=== PATIENT | female | born 2000 | race Caucasian/White ===

== ENCOUNTER 2024-05-27 06:30 | Inpatient (IN) ==
[2024-05-27] MEDS ORDERED: ZOFRAN INJ 4 MG VIAL IVP PRN ×2 (06:43→20:28)
[2024-05-27] MEDS ORDERED: PITOCIN ONE ×2 (06:54→19:14)
[2024-05-27] MEDS ORDERED: BETADINE SOLN ONE (06:55)
[2024-05-27] MEDS: LR 1,000 ML IV 1,000 ML IV SCH (07:00)
[2024-05-27 07:26] LABS: BASOPHILS % (AUTO) 0.3 % (0.2-1.0); EOSINOPHILS % (AUTO) 0.3 % (0.9-2.9); HEMATOCRIT 36.6 % (36.0-47.0); HEMOGLOBIN 12.3 g/dL (12.0-16.0); LYMPHOCYTES # (AUTO) 2.6 X10^3/uL (1.3-2.9); LYMPHOCYTES % (AUTO) 20.9 % (21.0-51.0); MEAN CORPUSCULAR HEMOGLOBIN 28.9 pg (27.0-34.0); MEAN CORPUSCULAR HGB CONC 33.7 g/dL (33.0-35.0); MEAN CORPUSCULAR VOLUME 85.7 fL (80.0-100.0); MONOCYTES % (AUTO) 8.4 % (0.0-13.0); NEUTROPHILS # (AUTO) 8.7 x10^3/uL (2.2-4.8); NEUTROPHILS % (AUTO) 70.1 % (42.0-75.0); PLATELET COUNT 224 X10^3/uL (150.0-450.0); RED BLOOD COUNT 4.27 X10^6/uL (3.5-5.4); RED CELL DISTRIBUTION WIDTH 14.1 % (11.6-16.5); WHITE BLOOD COUNT 12.4 X10^3/uL (3.6-10.0)
[2024-05-27 07:29] LABS: BLOOD UREA NITROGEN 10 mg/dL (7-18); CALCIUM 9.1 mg/dL (8.5-10.1); CARBON DIOXIDE 22.2 mmol/L (21-32); CHLORIDE 102 mmol/L (98-107); CREATININE 0.58 mg/dL (0.55-1.02); GLUCOSE 89 mg/dL (65-99); SODIUM 135 mmol/L (136-145); eGFR NON BLACK RACES > 60 (>60)
[2024-05-27] MEDS: OXYTOCIN 20 UNIT/1,000 ML-NS 20 UNIT/1,000 ML PLAST..BAG IV PRN (07:45)
[2024-05-27 07:46] LABS: BILIRUBIN,URINE NEGATIVE (NEGATIVE); BLOOD/HEMOGLOBIN,URINE NEGATIVE (NEGATIVE); GLUCOSE, URINE NEGATIVE (NEGATIVE); KETONES,URINE NEGATIVE (NEGATIVE); LEUKOCYTE ESTERASE ,URINE 3+ (NEGATIVE); NITRITES,URINE NEGATIVE (NEGATIVE); PROTEIN,URINE 1+ (NEGATIVE); UROBILINOGEN,URINE NORMAL (NORMAL)
[2024-05-27 08:02] LABS: APPEARANCE,URINE CLEAR (CLEAR); COLOR,URINE YELLOW (YELLOW)
[2024-05-27 08:04] LABS: BACTERIA,URINE TRACE /HPF (NEGATIVE); RBC,URINE NONE SEEN /HPF (0-3); SQUAMOUS EPITHELIAL CELL,UR FEW /HPF (NEGATIVE)
[2024-05-27] MEDS: LR 1,000 ML IV 1,000 ML IV ONE ×5 (08:14→16:28)
[2024-05-27] MEDS: XYLOCAINE 1 % (PLAIN) ONE (09:23)
[2024-05-27] MEDS: FENTANYL VIAL INJ 100 mcg ONE (09:35)
[2024-05-27] MEDS: NAROPIN EPIDURAL 0.2% 100 ML ONE (09:35)
[2024-05-27] MEDS: NUBAIN INJ 20 MG AMP IVP PRN (11:10)
[2024-05-27] MEDS: NUBAIN INJ 10 MG AMP ONE ×4 (11:14→18:08)
[2024-05-27] MEDS ORDERED: REGLAN INJ 10 MG VIAL ONE (18:54)
[2024-05-27] MEDS ORDERED: ZOFRAN INJ 4 MG VIAL ONE (18:54)
[2024-05-27] MEDS ORDERED: PEPCID 20 MG VIAL ONE (18:54)
[2024-05-27] MEDS ORDERED: DIPRIVAN VIAL 20 ML ONE (18:57)
[2024-05-27] MEDS: PEPCID 20 MG VIAL IVP PRN (18:59)
[2024-05-27] MEDS: ZOFRAN INJ 4 MG VIAL IVP PRN (19:00)
[2024-05-27] MEDS: LR 1,000 ML IV 2,000 ML IV PRN (19:00)
[2024-05-27] MEDS: REGLAN INJ 10 MG VIAL IVP PRN (19:00)
[2024-05-27] MEDS: NS 100 ML IV 100 ML ONE (19:11)
[2024-05-27] MEDS: ANCEF VIAL 1 GRAM ONE (19:11)
[2024-05-27] MEDS ORDERED: XYLOCAINE 2 % (PLAIN) ONE (19:13)
[2024-05-27] MEDS ORDERED: PRECEDEX INJ VIAL ONE (19:13)
[2024-05-27] MEDS: ANCEF VIAL 1 GRAM IV PRN (19:15)
[2024-05-27] MEDS ORDERED: EPHEDRINE SULFATE INJ ONE (19:33)
[2024-05-27] MEDS ORDERED: LR 1,000 ML IV 1,000 ML IV ONE (19:36)
[2024-05-27] MEDS: TORADOL 30 MG VIAL IVP PRN (20:01)
[2024-05-27] MEDS ORDERED: TORADOL 30 MG VIAL ONE (20:01)
[2024-05-27] MEDS ORDERED: OFIRMEV IV 1000 MG VIAL 1,000 MG/100 ML VIAL IV ONE (20:02)
[2024-05-27] MEDS: DIPRIVAN VIAL 50 ML IVP PRN (20:04)
[2024-05-27] MEDS: OFIRMEV IV 1000 MG VIAL 1,000 MG/100 ML VIAL IV PRN (20:08)
[2024-05-27] MEDS: EPHEDRINE SULFATE INJ IVP PRN (20:10)
[2024-05-27] MEDS ORDERED: PITOCIN IVP PRN (20:19)
[2024-05-27] MEDS ORDERED: BARHEMSYS INJ IVP PRN (20:28)
[2024-05-27] MEDS ORDERED: DILAUDID INJ IVP PRN (20:28)
[2024-05-27] MEDS ORDERED: REGLAN INJ 10 MG VIAL IVP PRN (20:28)
[2024-05-27] MEDS ORDERED: BENADRYL INJ 50 MG VIAL IVP PRN (20:28)
--- NOTE | 2024-05-27 20:37 | OR.IMMED ---
IMMEDIATE POST-OP NOTE Immediate Post-Op Note Pre-Op Diagnosis: Arrest of dilatation and descent Post-Op Diagnosis: same Procedure: Primary low transverse section via Pfannenstiel Findings: Live with reassuring apgars Specimens Removed: Placenta Estimated Blood Loss: 250 Drains: Catheter Complications: None Discharge Progress Notes: Transferred to PACU in stable condition
--- NOTE | 2024-05-27 20:40 | OB.OPNOTE ---
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 Operative technique: The patient was taken to the operating room with IV running after proper informed consent was obtained. She was placed on the operating room table where spinal anesthesia was administered. She was then repositioned in the dorsal supine position. A timeout was obtained. The skin was tested for adequacy of anesthesia. A Pfannenstiel incision was marked in the midline approximately 2 cm above the symphysis pubis. This incision was made sharply with the scalpel and extended through the subcutaneous tissue to the fascia with the Bovie in cautery mode. The fascia was scored in the midline and this extended with the Bovie in cautery mode and also sharp and blunt dissection. The superior aspect of the incision was then tented up with 2 Adrian clamps. The fascia was dissected off the rectus muscles below. In a similar fashion the inferior aspect of the incision was tented up and dissected off the rectus muscles below. The peritoneum was then entered with blunt dissection and a bilateral stretching maneuver was used to expose the vesicouterine peritoneum the incision of the peritoneum was extended with the Bovie and cautery mode in a cephalocaudal direction. The bladder blade was then placed the the vesicouterine peritoneum was incised with Metzenbaum scissors in an upward elliptical fashion. The bladder blade was replaced inside this incision and the scalpel was used to make a transverse incision in the lower uterine segment. This incision was extended with bilateral traction. The head was then atraumatically delivered through the myometrial incision, cord was doubly clamped and cut oral cavity was suctioned with a bulb suction. The was handed off to waiting housing quality standard inspector staff. The placenta was then delivered by manual extraction, the endometrial cavity curetted with moist laparotomy sponges. The uterus was then wrapped with a laparotomy sponge which was moistened and attention was turned to closing the lower uterine segment incision this incision was closed in a 2 layer fashion first with a running unlocked suture of 0 Vicryl second with an imbricating suture over the original closure. The uterus was then tilted anteriorly and the cul-de-sac was cleared of all clot and debris material and irrigated and uterus replaced the lower uterine segment incision was inspected off of tilt. It was found to be adequately hemostatic. The gutters were cleared of all clot and debris material. The parietal peritoneum was then reapproximated with 2-0 Vicryl in a running fashion. The muscle layers were irrigated and blotted dry and small bleeders coagulated with the Bovie. The fascia was then reapproximated with 0 Vicryl in a running fashion. The subcutaneous layer was irrigated and blotted dry and small bleeders coagulated with the Bovie the subcutaneous tissue was then reapproximated with 3-0 Vicryl in an interrupted fashion. The skin was closed with jaret. A sterile dressing was applied, and the patient seemed to tolerate this procedure well. She was transported to recovery room in stable condition.
[2024-05-27] MEDS: OXYTOCIN 20 UNIT/1,000 ML-NS 20 UNIT/1,000 ML PLAST..BAG IV SCH (22:39)
[2024-05-28] MEDS: OFIRMEV IV 1000 MG VIAL 1,000 MG/100 ML VIAL IV PRN (00:54)
[2024-05-28] MEDS: ROXICODONE TAB 5 MG PO PRN (02:25)
[2024-05-28] MEDS: MOTRIN TAB 800 MG PO PRN (05:52)
[2024-05-28] MEDS: PERCOCET TAB 5/325 MG PO PRN (08:11)
--- NOTE | 2024-05-28 08:34 | NOTE.PROBC ---
Progress Note OB-C/S Date Date of Exam: 05/28/24 Subjective Data Subjective: No complaints, decreased lochia. Tolerating diet. Ambulating. Quinones Has been removed and patient is up to the bathroom. Pain under control. Patient states that the IV Tylenol and Roxicodone did not help her. Objective Data 05/27/24 07:05 05/27/24 07:05 Objective Data: CV= RRR no MRG Lungs=CTA Bilaterally Abd=(+) BS, soft, ND, appropriately tender near incision. Fundus firm/NT/ at umbilicus. Ext= No edema, NT, No Cords. Sequential Compression Devices Bilaterally. Assessment Assessment: Postop day #1 status post primary section due to arrest of dilatation and descent. Patient appears to be doing well. Plan: Ambulate. Advance diet as tolerated.
--- NOTE | 2024-05-28 08:49 | DR.H&PGYN ---
H&P OBSTERICS/GYNECOLOGY Date Date of Exam: 05/27/24 Chief Complaint (1) Arrest of dilation, delivered, current hospitalization: Chief Complaint: 23-year-old, 3, Para 0, Currently at 40 weeks and 2 days of gestation for elective induction at full-term with favorable cervix. Allergies Allergies Allergy/AdvReac Type Severity Reaction Status Date / Time No Known Allergies Allergy Verified 05/21/24 21:40 History of Present Illness History of Present Illness: Patient has a recent history of feeling her heart racing and was evaluated by cardiology, and now states that her symptoms have resolved. She was placed on metoprolol. The plan to proceed with elective induction was discussed. The patient was in agreement with proceeding with el ective induction. Review of Systems Constitutional: No Symptoms Reported Cardiovascular: No Symptoms Reported Neurological: No Symptoms Reported Obsterical History : 3 Para: 0 : 2 Past Medical History Medical History: Other (Polycystic ovarian syndrome and obesity) Social History Does patient currently use any type of tobacco product: Yes Type of Tobacco Use: Vape Does any household member use tobacco: No Alcohol Use: None Drug Use: None Medications Active Medications Lactated Ringer's (Lr 1,000 Ml Iv) 1,000 mls @ 125 mls/hr IV Q8H PRINCE Last Admin: 05/28/24 03:11 Dose: Not Given Oxytocin/Sodium Chloride (Oxytocin 20 Unit/1,000 Ml-Ns) 20 unit in 1,000 mls @ 125 mls/hr IV Q8H PRINCE; Protocol Last Admin: 05/27/24 22:39 Dose: Not Given Acetaminophen (Ofirmev Iv 1000 Mg Vial) 1,000 mg in 100 mls @ 400 mls/hr IV Q6H PRN PRN Reason: FEVER OR MILD PAIN Last Admin: 05/28/24 00:54 Dose: 400 mls/hr Ibuprofen (Ibuprofen 800 Mg Tab) 800 mg PO Q8H PRN PRN Reason: MILD TO MODERATE PAIN Last Admin: 05/28/24 05:52 Dose: 800 mg Ondansetron HCl (Ondansetron Hcl 4 Mg/2 Ml Inj) 4 mg IVP Q8H PRN PRN Reason: NAUSEA/VOMITING Oxycodone/Acetaminophen (Oxycodone/Acet 5 Mg/325 Mg Tab) 1 ea PO Q4H PRN PRN Reason: SEVERE PAIN Last Admin: 05/28/24 08:11 Dose: 1 ea Physical Exam Temperature: 98.2 F Blood Pressure: 114/61 Respiratory Rate: 19 Pulse Rate: 82 O2 Sat by Pulse Oximetry: 96 Oriented: Normal Respiratory: Normal Cardiovascular: Normal : Other (Cervix was 3 cm, 25% effaced, vertex, and -2 station. heart tones were within normal limits category 1. ) Plan Plan: Patient was admitted for elective induction at full-term. She was started on Pitocin, and consented for an epidural. Expectant management. Monitor progress and heart tones. Review H&P Reviewed: Yes Patient was examined?: Yes
[2024-05-29 06:13] LABS: HEMATOCRIT 27.9 % (36.0-47.0); HEMOGLOBIN 9.4 g/dL (12.0-16.0)
[2024-05-29 08:00] VITALS: BP 103/59; PULSE 100; TEMP 98.9; O2SAT 98
--- NOTE | 2024-05-29 08:08 | W.DIS.FURT ---
Summary of Discharge Discharge Summary of Date Date of Exam: 05/29/24 Admission Date Date of Admission: 05/27/24 Admission Diagnosis Hospital Course: Patient is a 23-year-old 3 para 1, currently postoperative day #2 status post section. Patient was admitted for elective induction at full-term with a favorable cervix. She subsequently had arrest of dilatation and descent and was delivered by section. Her postoperative course has been essentially uncomplicated. Vital Signs: Vital Signs (72 hours) 05/28/24 08:49 05/27/24 06:52 05/27/24 06:51 Temperature 98.2 F Pulse Rate 82 96 H 91 H Pulse Rate [Left Brachial] Respiratory Rate 19 Blood Pressure 114/61 121/76 Blood Pressure [Left Arm] O2 Sat by Pulse Oximetry 96 94 L 94 L Oxygen Delivery Method 05/27/24 06:57 05/27/24 07:02 05/27/24 07:08 Temperature Pulse Rate 94 H 77 78 Pulse Rate [Left Brachial] Respiratory Rate Blood Pressure Blood Pressure [Left Arm] O2 Sat by Pulse Oximetry 96 96 88 L Oxygen Delivery Method 05/27/24 07:07 05/27/24 07:08 05/27/24 07:12 Temperature Pulse Rate 87 91 H 95 H Pulse Rate [Left Brachial] Respiratory Rate Blood Pressure 116/78 Blood Pressure [Left Arm] O2 Sat by Pulse Oximetry 96 95 Oxygen Delivery Method 05/27/24 07:17 05/27/24 07:22 05/27/24 07:23 Temperature Pulse Rate 86 81 83 Pulse Rate [Left Brachial] Respiratory Rate Blood Pressure 108/77 Blood Pressure [Left Arm] O2 Sat by Pulse Oximetry 97 98 Oxygen Delivery Method 05/27/24 07:27 05/27/24 07:32 05/27/24 07:37 Temperature Pulse Rate 65 79 84 Pulse Rate [Left Brachial] Respiratory Rate Blood Pressure 117/74 Blood Pressure [Left Arm] O2 Sat by Pulse Oximetry 97 97 89 L Oxygen Delivery Method 05/27/24 07:42 05/27/24 07:47 05/27/24 07:52 Temperature Pulse Rate 70 77 67 Pulse Rate [Left Brachial] Respiratory Rate Blood Pressure 118/76 Blood Pressure [Left Arm] O2 Sat by Pulse Oximetry 97 97 95 Oxygen Delivery Method 05/27/24 07:57 05/27/24 08:02 05/27/24 08:07 Temperature Pulse Rate 70 72 69 Pulse Rate [Left Brachial] Respiratory Rate Blood Pressure 126/79 Blood Pressure [Left Arm] O2 Sat by Pulse Oximetry 97 97 92 L Oxygen Delivery Method 05/27/24 08:12 05/27/24 08:17 05/27/24 08:22 Temperature Pulse Rate 67 67 68 Pulse Rate [Left Brachial] Respiratory Rate Blood Pressure Blood Pressure [Left Arm] O2 Sat by Pulse Oximetry 97 98 97 Oxygen Delivery Method 05/27/24 08:22 05/27/24 08:27 05/27/24 08:32 Temperature Pulse Rate 70 80 77 Pulse Rate [Left Brachial] Respiratory Rate Blood Pressure 133/79 Blood Pressure [Left Arm] O2 Sat by Pulse Oximetry 98 99 Oxygen Delivery Method 05/27/24 07:00 05/27/24 08:37 05/27/24 08:42 Temperature 97.9 F Pulse Rate 56 L 82 Pulse Rate [Left Brachial] Respiratory Rate 19 Blood Pressure 141/93 Blood Pressure [Left Arm] O2 Sat by Pulse Oximetry 96 100 Oxygen Delivery Method 05/27/24 08:47 05/27/24 08:52 05/27/24 08:52 Temperature Pulse Rate 72 90 99 H Pulse Rate [Left Brachial] Respiratory Rate Blood Pressure 141/93 Blood Pressure [Left Arm] O2 Sat by Pulse Oximetry 98 99 Oxygen Delivery Method 05/27/24 08:57 05/27/24 09:02 05/27/24 09:07 Temperature Pulse Rate 82 90 98 H Pulse Rate [Left Brachial] Respiratory Rate Blood Pressure 148/96 Blood Pressure [Left Arm] O2 Sat by Pulse Oximetry 100 99 97 Oxygen Delivery Method 05/27/24 09:12 05/27/24 09:17 05/27/24 09:20 Temperature Pulse Rate 84 83 88 Pulse Rate [Left Brachial] Respiratory Rate Blood Pressure 131/73 128/80 Blood Pressure [Left Arm] O2 Sat by Pulse Oximetry 97 97 Oxygen Delivery Method 05/27/24 09:22 05/27/24 09:23 05/27/24 09:26 Temperature Pulse Rate 94 H 96 H 106 H Pulse Rate [Left Brachial] Respiratory Rate Blood Pressure 132/87 131/86 Blood Pressure [Left Arm] O2 Sat by Pulse Oximetry 99 Oxygen Delivery Method 05/27/24 09:27 05/27/24 09:29 05/27/24 09:32 Temperature Pulse Rate 104 H 81 87 Pulse Rate [Left Brachial] Respiratory Rate Blood Pressure 136/78 Blood Pressure [Left Arm] O2 Sat by Pulse Oximetry 98 99 Oxygen Delivery Method 05/27/24 09:32 05/27/24 09:35 05/27/24 09:37 Temperature Pulse Rate 90 67 70 Pulse Rate [Left Brachial] Respiratory Rate Blood Pressure 107/72 110/70 Blood Pressure [Left Arm] O2 Sat by Pulse Oximetry 98 Oxygen Delivery Method 05/27/24 09:38 05/27/24 09:41 05/27/24 09:42 Temperature Pulse Rate 62 72 70 Pulse Rate [Left Brachial] Respiratory Rate Blood Pressure 108/68 110/69 Blood Pressure [Left Arm] O2 Sat by Pulse Oximetry 98 Oxygen Delivery Method 05/27/24 09:44 05/27/24 09:47 05/27/24 09:50 Temperature Pulse Rate 85 82 65 Pulse Rate [Left Brachial] Respiratory Rate Blood Pressure 123/71 130/60 136/80 Blood Pressure [Left Arm] O2 Sat by Pulse Oximetry 99 Oxygen Delivery Method 05/27/24 09:52 05/27/24 09:53 05/27/24 09:56 Temperature Pulse Rate 84 72 78 Pulse Rate [Left Brachial] Respiratory Rate Blood Pressure 130/77 125/73 Blood Pressure [Left Arm] O2 Sat by Pulse Oximetry 99 Oxygen Delivery Method 05/27/24 09:57 05/27/24 09:59 05/27/24 10:02 Temperature Pulse Rate 81 64 68 Pulse Rate [Left Brachial] Respiratory Rate Blood Pressure 123/74 Blood Pressure [Left Arm] O2 Sat by Pulse Oximetry 99 99 Oxygen Delivery Method 05/27/24 10:02 05/27/24 10:07 05/27/24 10:09 Temperature Pulse Rate 73 70 81 Pulse Rate [Left Brachial] Respiratory Rate Blood Pressure 128/69 147/75 Blood Pressure [Left Arm] O2 Sat by Pulse Oximetry 99 Oxygen Delivery Method 05/27/24 10:08 05/27/24 09:00 05/27/24 10:11 Temperature 98.0 F Pulse Rate 86 73 Pulse Rate [Left Brachial] Respiratory Rate 20 Blood Pressure 113/64 Blood Pressure [Left Arm] O2 Sat by Pulse Oximetry 87 L Oxygen Delivery Method 05/27/24 10:12 05/27/24 10:14 05/27/24 10:17 Temperature Pulse Rate 69 75 91 H Pulse Rate [Left Brachial] Respiratory Rate Blood Pressure 117/56 118/64 Blood Pressure [Left Arm] O2 Sat by Pulse Oximetry 97 90 L Oxygen Delivery Method 05/27/24 10:20 05/27/24 10:22 05/27/24 10:23 Temperature Pulse Rate 94 H 90 92 H Pulse Rate [Left Brachial] Respiratory Rate Blood Pressure 120/72 124/71 Blood Pressure [Left Arm] O2 Sat by Pulse Oximetry 98 Oxygen Delivery Method 05/27/24 10:26 05/27/24 10:27 05/27/24 10:29 Temperature Pulse Rate 88 88 90 Pulse Rate [Left Brachial] Respiratory Rate Blood Pressure 117/64 112/73 Blood Pressure [Left Arm] O2 Sat by Pulse Oximetry 99 Oxygen Delivery Method 05/27/24 10:31 05/27/24 10:32 05/27/24 10:32 Temperature Pulse Rate 90 75 75 Pulse Rate [Left Brachial] Respiratory Rate Blood Pressure 120/74 Blood Pressure [Left Arm] O2 Sat by Pulse Oximetry 94 L 98 Oxygen Delivery Method 05/27/24 10:35 05/27/24 10:37 05/27/24 10:38 Temperature Pulse Rate 81 76 64 Pulse Rate [Left Brachial] Respiratory Rate Blood Pressure 119/61 120/65 Blood Pressure [Left Arm] O2 Sat by Pulse Oximetry 98 Oxygen Delivery Method 05/27/24 10:41 05/27/24 10:42 05/27/24 10:41 Temperature Pulse Rate 85 72 74 Pulse Rate [Left Brachial] Respiratory Rate Blood Pressure 121/67 Blood Pressure [Left Arm] O2 Sat by Pulse Oximetry 97 94 L Oxygen Delivery Method 05/27/24 10:45 05/27/24 10:47 05/27/24 10:50 Temperature Pulse Rate 75 72 76 Pulse Rate [Left Brachial] Respiratory Rate Blood Pressure 120/57 131/70 120/62 Blood Pressure [Left Arm] O2 Sat by Pulse Oximetry 98 Oxygen Delivery Method 05/27/24 10:52 05/27/24 10:53 05/27/24 10:56 Temperature Pulse Rate 71 76 80 Pulse Rate [Left Brachial] Respiratory Rate Blood Pressure 117/72 127/83 Blood Pressure [Left Arm] O2 Sat by Pulse Oximetry 98 Oxygen Delivery Method 05/27/24 10:57 05/27/24 10:59 05/27/24 11:02 Temperature Pulse Rate 80 83 65 Pulse Rate [Left Brachial] Respiratory Rate Blood Pressure 122/77 Blood Pressure [Left Arm] O2 Sat by Pulse Oximetry 98 98 Oxygen Delivery Method 05/27/24 11:02 05/27/24 11:06 05/27/24 11:07 Temperature Pulse Rate 64 82 79 Pulse Rate [Left Brachial] Respiratory Rate Blood Pressure 127/60 150/75 Blood Pressure [Left Arm] O2 Sat by Pulse Oximetry 96 Oxygen Delivery Method 05/27/24 11:08 05/27/24 11:12 05/27/24 11:12 Temperature Pulse Rate 60 77 85 Pulse Rate [Left Brachial] Respiratory Rate Blood Pressure 130/76 Blood Pressure [Left Arm] O2 Sat by Pulse Oximetry 95 93 L Oxygen Delivery Method 05/27/24 11:14 05/27/24 11:17 05/27/24 11:20 Temperature Pulse Rate 86 85 80 Pulse Rate [Left Brachial] Respiratory Rate Blood Pressure 117/62 116/65 124/61 Blood Pressure [Left Arm] O2 Sat by Pulse Oximetry 99 Oxygen Delivery Method 05/27/24 11:22 05/27/24 11:25 05/27/24 11:27 Temperature Pulse Rate 80 77 68 Pulse Rate [Left Brachial] Respiratory Rate Blood Pressure 114/61 Blood Pressure [Left Arm] O2 Sat by Pulse Oximetry 98 98 Oxygen Delivery Method 05/27/24 11:32 05/27/24 11:37 05/27/24 11:38 Temperature Pulse Rate 82 80 75 Pulse Rate [Left Brachial] Respiratory Rate Blood Pressure 118/71 Blood Pressure [Left Arm] O2 Sat by Pulse Oximetry 98 97 Oxygen Delivery Method 05/27/24 11:42 05/27/24 11:47 05/27/24 11:52 Temperature Pulse Rate 74 69 109 H Pulse Rate [Left Brachial] Respiratory Rate Blood Pressure Blood Pressure [Left Arm] O2 Sat by Pulse Oximetry 97 97 98 Oxygen Delivery Method 05/27/24 11:54 05/27/24 11:57 05/27/24 12:00 Temperature Pulse Rate 81 81 73 Pulse Rate [Left Brachial] Respiratory Rate Blood Pressure Blood Pressure [Left Arm] O2 Sat by Pulse Oximetry 93 L 98 93 L Oxygen Delivery Method 05/27/24 12:07 05/27/24 12:07 05/27/24 12:12 Temperature Pulse Rate 106 H 103 H 96 H Pulse Rate [Left Brachial] Respiratory Rate Blood Pressure 125/95 Blood Pressure [Left Arm] O2 Sat by Pulse Oximetry 97 93 L 96 Oxygen Delivery Method 05/27/24 12:13 05/27/24 12:14 05/27/24 12:17 Temperature Pulse Rate 83 86 77 Pulse Rate [Left Brachial] Respiratory Rate Blood Pressure 140/61 Blood Pressure [Left Arm] O2 Sat by Pulse Oximetry 93 L 98 Oxygen Delivery Method 05/27/24 12:19 05/27/24 12:23 05/27/24 12:24 Temperature Pulse Rate 78 103 H 94 H Pulse Rate [Left Brachial] Respiratory Rate Blood Pressure 118/78 Blood Pressure [Left Arm] O2 Sat by Pulse Oximetry 92 L 98 93 L Oxygen Delivery Method 05/27/24 12:28 05/27/24 12:33 05/27/24 12:38 Temperature Pulse Rate 82 78 92 H Pulse Rate [Left Brachial] Respiratory Rate Blood Pressure Blood Pressure [Left Arm] O2 Sat by Pulse Oximetry 97 96 95 Oxygen Delivery Method 05/27/24 12:40 05/27/24 12:43 05/27/24 12:48 Temperature Pulse Rate 85 79 80 Pulse Rate [Left Brachial] Respiratory Rate Blood Pressure 117/71 Blood Pressure [Left Arm] O2 Sat by Pulse Oximetry 93 L 96 97 Oxygen Delivery Method 05/27/24 12:50 05/27/24 12:53 05/27/24 12:58 Temperature Pulse Rate 83 86 84 Pulse Rate [Left Brachial] Respiratory Rate Blood Pressure 110/66 Blood Pressure [Left Arm] O2 Sat by Pulse Oximetry 93 L 95 96 Oxygen Delivery Method 05/27/24 13:03 05/27/24 13:05 05/27/24 13:08 Temperature Pulse Rate 79 74 77 Pulse Rate [Left Brachial] Respiratory Rate Blood Pressure Blood Pressure [Left Arm] O2 Sat by Pulse Oximetry 98 94 L 98 Oxygen Delivery Method 05/27/24 13:09 05/27/24 13:11 05/27/24 13:13 Temperature Pulse Rate 85 83 91 H Pulse Rate [Left Brachial] Respiratory Rate Blood Pressure 112/69 Blood Pressure [Left Arm] O2 Sat by Pulse Oximetry 94 L 94 L Oxygen Delivery Method 05/27/24 13:18 05/27/24 13:21 05/27/24 13:23 Temperature Pulse Rate 86 75 80 Pulse Rate [Left Brachial] Respiratory Rate Blood Pressure Blood Pressure [Left Arm] O2 Sat by Pulse Oximetry 96 94 L 96 Oxygen Delivery Method 05/27/24 13:23 05/27/24 13:27 05/27/24 13:00 Temperature 97.8 F Pulse Rate 76 78 Pulse Rate [Left Brachial] Respiratory Rate 20 Blood Pressure 112/57 Blood Pressure [Left Arm] O2 Sat by Pulse Oximetry 93 L Oxygen Delivery Method 05/27/24 13:28 05/27/24 13:33 05/27/24 13:34 Temperature Pulse Rate 68 81 63 Pulse Rate [Left Brachial] Respiratory Rate Blood Pressure Blood Pressure [Left Arm] O2 Sat by Pulse Oximetry 94 L 94 L 94 L Oxygen Delivery Method 05/27/24 13:38 05/27/24 13:38 05/27/24 13:41 Temperature Pulse Rate 66 62 65 Pulse Rate [Left Brachial] Respiratory Rate Blood Pressure 114/72 Blood Pressure [Left Arm] O2 Sat by Pulse Oximetry 98 94 L Oxygen Delivery Method 05/27/24 13:43 05/27/24 13:48 05/27/24 13:53 Temperature Pulse Rate 66 73 80 Pulse Rate [Left Brachial] Respiratory Rate Blood Pressure Blood Pressure [Left Arm] O2 Sat by Pulse Oximetry 95 95 98 Oxygen Delivery Method 05/27/24 13:54 05/27/24 13:56 05/27/24 13:58 Temperature Pulse Rate 71 91 H 85 Pulse Rate [Left Brachial] Respiratory Rate Blood Pressure 120/70 Blood Pressure [Left Arm] O2 Sat by Pulse Oximetry 94 L 97 Oxygen Delivery Method 05/27/24 14:03 05/27/24 14:08 05/27/24 14:09 Temperature Pulse Rate 87 78 71 Pulse Rate [Left Brachial] Respiratory Rate Blood Pressure 116/67 Blood Pressure [Left Arm] O2 Sat by Pulse Oximetry 97 99 Oxygen Delivery Method 05/27/24 14:13 05/27/24 14:18 05/27/24 14:23 Temperature Pulse Rate 84 93 H 88 Pulse Rate [Left Brachial] Respiratory Rate Blood Pressure Blood Pressure [Left Arm] O2 Sat by Pulse Oximetry 96 99 99 Oxygen Delivery Method 05/27/24 14:23 05/27/24 14:25 05/27/24 14:28 Temperature Pulse Rate 75 84 86 Pulse Rate [Left Brachial] Respiratory Rate Blood Pressure 110/68 Blood Pressure [Left Arm] O2 Sat by Pulse Oximetry 93 L 96 Oxygen Delivery Method 05/27/24 14:00 05/27/24 14:33 05/27/24 14:38 Temperature 98.1 F Pulse Rate 67 83 Pulse Rate [Left Brachial] Respiratory Rate 19 Blood Pressure Blood Pressure [Left Arm] O2 Sat by Pulse Oximetry 99 97 Oxygen Delivery Method 05/27/24 14:39 05/27/24 14:43 05/27/24 14:48 Temperature Pulse Rate 86 95 H 78 Pulse Rate [Left Brachial] Respiratory Rate Blood Pressure 111/83 Blood Pressure [Left Arm] O2 Sat by Pulse Oximetry 97 98 Oxygen Delivery Method 05/27/24 14:53 05/27/24 14:54 05/27/24 14:58 Temperature Pulse Rate 73 59 L 86 Pulse Rate [Left Brachial] Respiratory Rate Blood Pressure 129/77 Blood Pressure [Left Arm] O2 Sat by Pulse Oximetry 97 99 Oxygen Delivery Method 05/27/24 15:03 05/27/24 15:08 05/27/24 15:09 Temperature Pulse Rate 95 H 87 73 Pulse Rate [Left Brachial] Respiratory Rate Blood Pressure 119/73 Blood Pressure [Left Arm] O2 Sat by Pulse Oximetry 98 94 L Oxygen Delivery Method 05/27/24 15:13 05/27/24 15:14 05/27/24 15:18 Temperature Pulse Rate 82 73 86 Pulse Rate [Left Brachial] Respiratory Rate Blood Pressure Blood Pressure [Left Arm] O2 Sat by Pulse Oximetry 99 92 L 97 Oxygen Delivery Method 05/27/24 15:21 05/27/24 15:23 05/27/24 15:27 Temperature Pulse Rate 63 61 72 Pulse Rate [Left Brachial] Respiratory Rate Blood Pressure 117/75 Blood Pressure [Left Arm] O2 Sat by Pulse Oximetry 92 L 94 L Oxygen Delivery Method 05/27/24 15:28 05/27/24 15:32 05/27/24 15:33 Temperature Pulse Rate 64 84 65 Pulse Rate [Left Brachial] Respiratory Rate Blood Pressure Blood Pressure [Left Arm] O2 Sat by Pulse Oximetry 98 93 L 100 Oxygen Delivery Method 05/27/24 15:38 05/27/24 15:39 05/27/24 15:43 Temperature Pulse Rate 74 77 84 Pulse Rate [Left Brachial] Respiratory Rate Blood Pressure 136/83 Blood Pressure [Left Arm] O2 Sat by Pulse Oximetry 100 100 Oxygen Delivery Method 05/27/24 15:48 05/27/24 15:53 05/27/24 15:55 Temperature Pulse Rate 61 68 63 Pulse Rate [Left Brachial] Respiratory Rate Blood Pressure 142/80 Blood Pressure [Left Arm] O2 Sat by Pulse Oximetry 100 100 Oxygen Delivery Method 05/27/24 15:58 05/27/24 16:03 05/27/24 16:00 Temperature 98.2 F Pulse Rate 93 H 91 H Pulse Rate [Left Brachial] Respiratory Rate 19 Blood Pressure Blood Pressure [Left Arm] O2 Sat by Pulse Oximetry 100 100 Oxygen Delivery Method 05/27/24 16:08 05/27/24 16:10 05/27/24 16:13 Temperature Pulse Rate 64 93 H 85 Pulse Rate [Left Brachial] Respiratory Rate Blood Pressure 148/96 Blood Pressure [Left Arm] O2 Sat by Pulse Oximetry 100 100 Oxygen Delivery Method 05/27/24 16:18 05/27/24 16:23 05/27/24 16:24 Temperature Pulse Rate 94 H 80 76 Pulse Rate [Left Brachial] Respiratory Rate Blood Pressure 127/75 Blood Pressure [Left Arm] O2 Sat by Pulse Oximetry 99 96 Oxygen Delivery Method 05/27/24 16:28 05/27/24 16:31 05/27/24 16:33 Temperature Pulse Rate 94 H 100 H 91 H Pulse Rate [Left Brachial] Respiratory Rate Blood Pressure Blood Pressure [Left Arm] O2 Sat by Pulse Oximetry 99 94 L 96 Oxygen Delivery Method 05/27/24 16:38 05/27/24 16:40 05/27/24 16:43 Temperature Pulse Rate 82 90 87 Pulse Rate [Left Brachial] Respiratory Rate Blood Pressure 138/87 Blood Pressure [Left Arm] O2 Sat by Pulse Oximetry 99 97 Oxygen Delivery Method 05/27/24 16:48 05/27/24 16:53 05/27/24 16:53 Temperature Pulse Rate 98 H 79 93 H Pulse Rate [Left Brachial] Respiratory Rate Blood Pressure 137/89 Blood Pressure [Left Arm] O2 Sat by Pulse Oximetry 93 L 95 Oxygen Delivery Method 05/27/24 16:56 05/27/24 16:58 05/27/24 17:02 Temperature Pulse Rate 78 76 74 Pulse Rate [Left Brachial] Respiratory Rate Blood Pressure Blood Pressure [Left Arm] O2 Sat by Pulse Oximetry 92 L 94 L 93 L Oxygen Delivery Method 05/27/24 17:03 05/27/24 17:07 05/27/24 17:08 Temperature Pulse Rate 68 100 H 77 Pulse Rate [Left Brachial] Respiratory Rate Blood Pressure Blood Pressure [Left Arm] O2 Sat by Pulse Oximetry 95 94 L 98 Oxygen Delivery Method 05/27/24 17:10 05/27/24 17:12 05/27/24 17:13 Temperature Pulse Rate 85 75 70 Pulse Rate [Left Brachial] Respiratory Rate Blood Pressure 138/89 Blood Pressure [Left Arm] O2 Sat by Pulse Oximetry 93 L 96 Oxygen Delivery Method 05/27/24 17:18 05/27/24 17:23 05/27/24 17:24 Temperature Pulse Rate 94 H 96 H 82 Pulse Rate [Left Brachial] Respiratory Rate Blood Pressure 131/78 Blood Pressure [Left Arm] O2 Sat by Pulse Oximetry 100 99 Oxygen Delivery Method 05/27/24 17:28 05/27/24 17:33 05/27/24 17:37 Temperature Pulse Rate 81 82 76 Pulse Rate [Left Brachial] Respiratory Rate Blood Pressure Blood Pressure [Left Arm] O2 Sat by Pulse Oximetry 98 97 93 L Oxygen Delivery Method 05/27/24 17:38 05/27/24 17:43 05/27/24 17:48 Temperature Pulse Rate 83 94 H 89 Pulse Rate [Left Brachial] Respiratory Rate Blood Pressure Blood Pressure [Left Arm] O2 Sat by Pulse Oximetry 96 99 96 Oxygen Delivery Method 05/27/24 17:53 05/27/24 17:58 05/27/24 17:57 Temperature Pulse Rate 94 H 74 86 Pulse Rate [Left Brachial] Respiratory Rate Blood Pressure 161/88 Blood Pressure [Left Arm] O2 Sat by Pulse Oximetry 96 93 L 91 L Oxygen Delivery Method 05/27/24 18:03 05/27/24 18:06 05/27/24 18:08 Temperature Pulse Rate 81 79 73 Pulse Rate [Left Brachial] Respiratory Rate Blood Pressure Blood Pressure [Left Arm] O2 Sat by Pulse Oximetry 94 L 94 L 97 Oxygen Delivery Method 05/27/24 18:09 05/27/24 18:13 05/27/24 18:18 Temperature Pulse Rate 76 65 71 Pulse Rate [Left Brachial] Respiratory Rate Blood Pressure 130/76 Blood Pressure [Left Arm] O2 Sat by Pulse Oximetry 96 95 Oxygen Delivery Method 05/27/24 18:21 05/27/24 18:23 05/27/24 18:24 Temperature Pulse Rate 78 98 H 65 Pulse Rate [Left Brachial] Respiratory Rate Blood Pressure 119/74 Blood Pressure [Left Arm] O2 Sat by Pulse Oximetry 92 L 96 Oxygen Delivery Method 05/27/24 18:28 05/27/24 18:29 05/27/24 18:33 Temperature Pulse Rate 106 H 87 84 Pulse Rate [Left Brachial] Respiratory Rate Blood Pressure Blood Pressure [Left Arm] O2 Sat by Pulse Oximetry 95 93 L 98 Oxygen Delivery Method 05/27/24 18:38 05/27/24 18:40 05/27/24 18:43 Temperature Pulse Rate 98 H 84 98 H Pulse Rate [Left Brachial] Respiratory Rate Blood Pressure 132/86 Blood Pressure [Left Arm] O2 Sat by Pulse Oximetry 100 96 Oxygen Delivery Method 05/27/24 18:48 05/27/24 18:53 05/27/24 18:58 Temperature Pulse Rate 92 H 93 H 90 Pulse Rate [Left Brachial] Respiratory Rate Blood Pressure 130/85 Blood Pressure [Left Arm] O2 Sat by Pulse Oximetry 99 97 98 Oxygen Delivery Method 05/27/24 19:03 05/27/24 19:08 05/27/24 19:09 Temperature Pulse Rate 78 88 84 Pulse Rate [Left Brachial] Respiratory Rate Blood Pressure 134/80 Blood Pressure [Left Arm] O2 Sat by Pulse Oximetry 98 97 Oxygen Delivery Method 05/27/24 19:13 05/27/24 06:40 05/27/24 13:22 Temperature Pulse Rate 80 Pulse Rate [Left Brachial] Respiratory Rate 20 Blood Pressure Blood Pressure [Left Arm] O2 Sat by Pulse Oximetry 96 Oxygen Delivery Method Room Air 05/27/24 15:22 05/27/24 18:08 05/27/24 20:34 Temperature 98 F Pulse Rate 81 Pulse Rate [Left Brachial] Respiratory Rate 18 19 18 Blood Pressure 110/54 Blood Pressure [Left Arm] O2 Sat by Pulse Oximetry 99 Oxygen Delivery Method Nasal Cannula 05/27/24 20:39 05/27/24 20:44 05/27/24 20:49 Temperature Pulse Rate 89 88 92 H Pulse Rate [Left Brachial] Respiratory Rate 18 18 18 Blood Pressure 121/56 111/53 111/56 Blood Pressure [Left Arm] O2 Sat by Pulse Oximetry 99 99 99 Oxygen Delivery Method Nasal Cannula Nasal Cannula Nasal Cannula 05/27/24 20:54 05/27/24 20:59 05/27/24 21:04 Temperature Pulse Rate 90 81 85 Pulse Rate [Left Brachial] Respiratory Rate 18 18 18 Blood Pressure 105/53 105/53 107/53 Blood Pressure [Left Arm] O2 Sat by Pulse Oximetry 97 96 96 Oxygen Delivery Method Room Air Room Air Room Air 05/27/24 21:05 05/27/24 21:15 05/27/24 21:30 Temperature 97.9 F 97.8 F Pulse Rate 81 66 Pulse Rate [Left Brachial] Respiratory Rate 18 20 Blood Pressure 105/51 98/46 Blood Pressure [Left Arm] O2 Sat by Pulse Oximetry Oxygen Delivery Method Room Air 05/27/24 21:45 05/27/24 22:00 05/27/24 22:15 Temperature 97.8 F 97.5 F L 97.6 F Pulse Rate 68 68 70 Pulse Rate [Left Brachial] Respiratory Rate 20 20 19 Blood Pressure 135/81 119/61 110/58 Blood Pressure [Left Arm] O2 Sat by Pulse Oximetry Oxygen Delivery Method 05/27/24 23:15 05/28/24 00:15 05/28/24 01:15 Temperature 97.5 F L 97.6 F 97.5 F L Pulse Rate 78 79 79 Pulse Rate [Left Brachial] Respiratory Rate 20 21 20 Blood Pressure 127/69 119/61 113/70 Blood Pressure [Left Arm] O2 Sat by Pulse Oximetry Oxygen Delivery Method 05/28/24 02:25 05/28/24 02:15 05/28/24 03:25 Temperature 97.6 F Pulse Rate 82 Pulse Rate [Left Brachial] Respiratory Rate 20 21 18 Blood Pressure 114/61 Blood Pressure [Left Arm] O2 Sat by Pulse Oximetry Oxygen Delivery Method 05/28/24 04:00 05/28/24 05:52 05/28/24 07:47 Temperature 98.1 F 98.2 F Pulse Rate Pulse Rate [Left Brachial] 103 H 102 H Respiratory Rate 20 18 19 Blood Pressure Blood Pressure [Left Arm] 108/59 132/61 O2 Sat by Pulse Oximetry 97 96 Oxygen Delivery Method Room Air Room Air 05/28/24 08:11 05/28/24 06:52 05/28/24 07:00 Temperature Pulse Rate Pulse Rate [Left Brachial] Respiratory Rate 19 19 Blood Pressure Blood Pressure [Left Arm] O2 Sat by Pulse Oximetry Oxygen Delivery Method Room Air 05/28/24 10:27 05/28/24 09:11 05/28/24 12:00 Temperature 98.8 F Pulse Rate Pulse Rate [Left Brachial] 80 Respiratory Rate 20 20 80 H Blood Pressure Blood Pressure [Left Arm] 109/52 O2 Sat by Pulse Oximetry 97 Oxygen Delivery Method Room Air 05/28/24 11:27 05/28/24 13:53 05/28/24 14:53 Temperature Pulse Rate Pulse Rate [Left Brachial] Respiratory Rate 20 18 19 Blood Pressure Blood Pressure [Left Arm] O2 Sat by Pulse Oximetry Oxygen Delivery Method 05/28/24 15:44 05/28/24 18:20 05/28/24 19:00 Temperature 98.5 F Pulse Rate Pulse Rate [Left Brachial] 87 Respiratory Rate 17 20 Blood Pressure Blood Pressure [Left Arm] 111/56 O2 Sat by Pulse Oximetry 96 Oxygen Delivery Method Room Air Room Air 05/28/24 19:20 05/28/24 20:00 05/28/24 20:45 Temperature 98.4 F Pulse Rate Pulse Rate [Left Brachial] 107 H Respiratory Rate 18 18 19 Blood Pressure Blood Pressure [Left Arm] 122/65 O2 Sat by Pulse Oximetry 97 Oxygen Delivery Method Room Air 05/28/24 21:45 05/28/24 23:34 05/29/24 00:00 Temperature 97.4 F L Pulse Rate Pulse Rate [Left Brachial] 82 Respiratory Rate 17 18 20 Blood Pressure Blood Pressure [Left Arm] 117/66 O2 Sat by Pulse Oximetry 97 Oxygen Delivery Method Room Air 05/29/24 00:34 05/29/24 04:53 05/29/24 04:00 Temperature 97.5 F L Pulse Rate Pulse Rate [Left Brachial] 88 Respiratory Rate 18 18 18 Blood Pressure Blood Pressure [Left Arm] 123/69 O2 Sat by Pulse Oximetry 100 Oxygen Delivery Method Room Air 05/29/24 05:53 Temperature Pulse Rate Pulse Rate [Left Brachial] Respiratory Rate 19 Blood Pressure Blood Pressure [Left Arm] O2 Sat by Pulse Oximetry Oxygen Delivery Method Labs: Laboratory Last Values WBC 12.4 X10^3/uL (3.6-10.0) H 05/27/24 07:05 RBC 4.27 X10^6/uL (3.5-5.4) 05/27/24 07:05 Hgb 9.4 g/dL (12.0-16.0) L D 05/29/24 05:45 Hct 27.9 % (36.0-47.0) L 05/29/24 05:45 MCV 85.7 fL (80.0-100.0) 05/27/24 07:05 MCH 28.9 pg (27.0-34.0) 05/27/24 07:05 MCHC 33.7 g/dL (33.0-35.0) 05/27/24 07:05 RDW 14.1 % (11.6-16.5) 05/27/24 07:05 Plt Count 224 X10^3/uL (150.0-450.0) 05/27/24 07:05 MPV 11.0 fL (7.4-11.0) 05/27/24 07:05 Neut % (Auto) 70.1 % (42.0-75.0) 05/27/24 07:05 Lymph % (Auto) 20.9 % (21.0-51.0) L 05/27/24 07:05 Simpson % (Auto) 8.4 % (0.0-13.0) 05/27/24 07:05 Eos % (Auto) 0.3 % (0.9-2.9) L 05/27/24 07:05 Baso % (Auto) 0.3 % (0.2-1.0) 05/27/24 07:05 Neut # (Auto) 8.7 x10^3/uL (2.2-4.8) H 05/27/24 07:05 Lymph # (Auto) 2.6 X10^3/uL (1.3-2.9) 05/27/24 07:05 Simpson # (Auto) 1.0 x10^3/uL (0.3-0.8) H 05/27/24 07:05 Eos # (Auto) 0.0 x10^3/uL (0.0-0.2) 05/27/24 07:05 Baso # (Auto) 0.0 X10^3/uL (0.0-0.1) 05/27/24 07:05 Absolute Nucleated RBC 0.2 /100WBC 05/27/24 07:05 Sodium 135 mmol/L (136-145) L 05/27/24 07:05 Corrected Sodium TNP 05/27/24 07:05 Potassium 4.0 mmol/L (3.5-5.1) 05/27/24 07:05 Chloride 102 mmol/L (98-107) 05/27/24 07:05 Carbon Dioxide 22.2 mmol/L (21-32) 05/27/24 07:05 BUN 10 mg/dL (7-18) 05/27/24 07:05 Creatinine 0.58 mg/dL (0.55-1.02) 05/27/24 07:05 Est GFR (MDRD) Af Amer > 60 (>60) 05/27/24 07:05 Est GFR (MDRD) Non-Af > 60 (>60) 05/27/24 07:05 Glucose 89 mg/dL (65-99) 05/27/24 07:05 Calcium 9.1 mg/dL (8.5-10.1) 05/27/24 07:05 Specimen Type Clean catch urine 05/27/24 06:45 Urine Color Yellow (YELLOW) 05/27/24 06:45 Urine Appearance Clear (CLEAR) 05/27/24 06:45 Urine pH 6.0 (5.0 - 8.0) 05/27/24 06:45 Ur Specific [place] 1.020 (1.000-1.030) 05/27/24 06:45 Urine Protein 1+ (NEGATIVE) 05/27/24 06:45 Urine Glucose (UA) Negative (NEGATIVE) 05/27/24 06:45 Urine Ketones Negative (NEGATIVE) 05/27/24 06:45 Urine Blood Negative (NEGATIVE) 05/27/24 06:45 Urine Nitrite Negative (NEGATIVE) 05/27/24 06:45 Urine Bilirubin Negative (NEGATIVE) 05/27/24 06:45 Urine Urobilinogen Normal (NORMAL) 05/27/24 06:45 Ur Leukocyte Esterase 3+ (NEGATIVE) 05/27/24 06:45 Urine RBC None seen /HPF (0-3) 05/27/24 06:45 Urine WBC 5-10 /HPF (0-5) A 05/27/24 06:45 Ur Squamous Epith Cells Few /HPF (NEGATIVE) 05/27/24 06:45 Amorphous Sediment 1+ /HPF (NEGATIVE) 05/27/24 06:45 Urine Bacteria Trace /HPF (NEGATIVE) 05/27/24 06:45 Ur Culture Indicated? Yes/culture set up 05/27/24 06:45 Urine Opiates Screen Negative (NEG=<300) 05/27/24 06:45 Urine Methadone Screen Negative (NEG=<300) 05/27/24 06:45 Ur Barbiturates Screen Negative (NEG=<200) 05/27/24 06:45 Ur Phencyclidine Scrn Negative (NEG=<25) 05/27/24 06:45 Ur Amphetamines Screen Negative (NEG=<1000) 05/27/24 06:45 U Benzodiazepines Scrn Negative (NEG=<200) 05/27/24 06:45 Urine Cocaine Screen Negative (NEG=<300) 05/27/24 06:45 U Marijuana (THC) Screen Negative (NEG=<50) 05/27/24 06:45 RPR Nonreactive (NONREACTIVE) 05/27/24 07:05 Hepatitis C Antibody Non-reactive (NON-REACTIVE) 05/27/24 07:05 HIV 1&2 Antibody Non reactive (NONREACTIVE) 05/27/24 07:05 HIV P24 Antigen Non reactive (NONREACTIVE) 05/27/24 07:05 Blood Type A POSITIVE 05/27/24 07:10 Antibody Screen Negative 05/27/24 07:05 Reason For Visit: PIT IDUCTION Discharge Diagnosis All Active Problems (Updated 05/28/24 @ 08:20 by Migdalia Lake MD) Arrest of dilation, delivered, current hospitalization (Acute) False labor (Acute) SOB (shortness of breath) (Acute) Tachycardia (Acute) (Acute) Body mass index (BMI) of 40.1-44.9 in adult (Acute) Dizziness (Acute) Adjustment disorder (Acute) UTI (urinary tract infection) (Acute) Constipation (Acute) Plan of Treatment: Continue with present treatment and follow up plan. Pt is to keep follow up appointment as instructed and take medications as ordered. Discharge Medications Discharge Medications: No Known Allergies Allergy (Verified 05/21/24 21:40) New Prescriptions ibuprofen 800 mg tablet 800 mg PO Q8H PRN 30 days #30 tabs 05/29/24 [Rx] oxycodone-acetaminophen 5 mg-325 mg tablet 1 tab PO Q4H PRN #28 tabs 05/29/24 [Rx] Discharge Disposition Assessment: Status post delivery postoperative day #2. Discharge Plan Discharge Plan Hospital Course: Patient is a 23-year-old 3 para 1, currently postoperative day #2 status post section. Patient was admitted for elective induction at full- term with a favorable cervix. She subsequently had arrest of dilatation and descent and was delivered by section. Her postoperative course has been essentially uncomplicated. Patient Disposition: 01 HOME, SELF-CARE Condition: Stable Health Concerns: Post Hospitalization: new medications and changes needed to prevent readmission or further decline. Pt educated and given instructions on all concerns. Plan of Treatment: Continue with present treatment and follow up plan. Pt is to keep follow up appointment as instructed and take medications as ordered. Assessment: Status post delivery postoperative day #2. Prescriptions: New ibuprofen 800 mg Tablet 800 mg PO Q8H PRN30 Days Qty: 30 1RF oxycodone-acetaminophen 5-325 mg Tablet 1 tab PO Q4H MDD 4 PRNQty: 28 0RF Continued Classic 28 mg iron- 800 mcg tablet 1 tab PO .q day MDD 1 90 Days Qty: 90 3RF Follow ups/Referrals Follow ups/Referrals: Migdalia Lake MD [Primary Care Provider] - 1 WEEK Instructions Stand Alone Forms: Excuse From Work or School, Find Help Web Site, Post Hospital Follow Up Care
--- NOTE | 2024-05-29 08:11 | NOTE.PROBC ---
Progress Note OB-C/S Date Date of Exam: 05/29/24 Subjective Data Subjective: No complaints, decreased lochia. Tolerating diet. No N/V. Ambulating well. Quinones draining well. Pain under control, but she refused to take the ibuprofen. Objective Data 05/29/24 05:45 05/27/24 07:05 Objective Data: CV= RRR no MRG Lungs=CTA Bilaterally Abd=(+) BS, soft, ND, appropriately tender near incision. Dressing intact. Fundus firm below umbilicus. Ext= No edema, NT, No Cords. Assessment Assessment: Status post primary section due to arrest of dilatation and descent, postoperative day #2. Plan (1) Arrest of dilation, delivered, current hospitalization: Plan: A prescription has been sent to her pharmacy, and she is to return in 1 week for an incision check.
[2024-05-29 08:17] VITALS: RESP 20
[2024-05-29] MEDS: HEMOCYTE PLUS PO SCH (09:18)
== END 2024-05-29 11:30 | disposition home or self-care (01) | DRG 788 ==
LOC: LD 06:30 → MED/SURG 20:48
PROVIDERS: ADMIT Obstetrics & Gynecology; ATTEND Obstetrics & Gynecology
DX: Z37.0 Single live birth; O62.1 Secondary uterine inertia; O26.893 Other specified pregnancy related conditions, third trimester; Z3A.40 40 weeks gestation of pregnancy